=== PATIENT | female | born 2000 | race African-American/Black ===

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

== ENCOUNTER 2019-03-11 16:00 | Emergency (ER) | payer OTHER | END 2019-03-11 17:25 | disposition home or self-care (01) | LOC: NAV ERS 16:00 | DX: B34.9 Viral infection, unspecified (principal) | CPT/HCPCS: 99283 ==

== ENCOUNTER 2019-06-28 17:15 | Emergency (ER) | payer MEDICARE, OTHER | END 2019-06-28 18:57 | disposition home or self-care (01) | LOC: NAV ERS 17:15 | DX: Z03.818 Encounter for observation for suspected exposure to other biological agents ruled out (principal); J06.9 Acute upper respiratory infection, unspecified | CPT/HCPCS: 87081; 87430; 87804; 99283 ==

== ENCOUNTER 2020-03-30 21:20 | Emergency (ER) | payer OTHER, SELFPAY ==
[2020-04-01 02:52] LABS: SARS-CoV-2 MS2 Positive; SARS-CoV-2 N Gene Negative; SARS-CoV-2 S Gene Negative; SARS-CoV-2 by NAA Not Detected (NotDetected); SARS-CoV-2 orf1ab Negative
== END 2020-03-30 22:20 | disposition home or self-care (01) ==
LOC: NAV ERS 21:20
DX: R19.7 Diarrhea, unspecified (principal); R50.9 Fever, unspecified; Z20.828 Contact with and (suspected) exposure to other viral communicable diseases
CPT/HCPCS: 87635; U0003

== ENCOUNTER 2020-05-09 14:53 | Emergency (ER) | payer SELFPAY | END 2020-05-09 16:30 | disposition home or self-care (01) | LOC: NAV ERS 14:53 | DX: J02.9 Acute pharyngitis, unspecified (principal); R00.0 Tachycardia, unspecified; R59.0 Localized enlarged lymph nodes | CPT/HCPCS: 87081; 87430; 99283 ==

== ENCOUNTER 2020-07-04 21:40 | Emergency (ER) | payer BC ==
[2020-07-04] MEDS ORDERED: Sulfameth/Trimethoprim DS 800-160mg TAB ONE (22:34)
[2020-07-04] MEDS ORDERED: TETANUS, DIPHTHERIA TOX,ADULT (TDVAX) 0.5 ML VIAL IM ONE (22:36)
[2020-07-04] MEDS ORDERED: Boostrix 0.5 ML (Tdap) VIAL ONE (22:41)
== END 2020-07-04 22:56 | disposition home or self-care (01) ==
LOC: NAV ERS 21:40
DX: L03.011 Cellulitis of right finger (principal)
CPT/HCPCS: 10060; 87070; 87205; 90471; 90714; 90715

== ENCOUNTER 2023-03-08 19:39 | Emergency (ER) | payer MEDICAID, OTHER | END 2023-03-08 21:02 | disposition home or self-care (01) | LOC: NAV ERS 19:39 | DX: B34.9 Viral infection, unspecified (principal) | CPT/HCPCS: 87635; 87804; 99283 ==

== ENCOUNTER 2024-08-10 20:45 | Emergency (ER) | payer OTHER, SELFPAY ==
[2024-08-10] MEDS ORDERED: Ketorolac Tromethamine 30 MG (1 mL) VIAL ONE (21:41)
[2024-08-10] MEDS ORDERED: Ondansetron PF 4 MG/2 ML Vial ONE (21:41)
[2024-08-10 21:48] LABS: Bilirubin Negative (Negative); Blood, Urine Large (Negative); Glucose, Urine (Dipstick) Negative (Negative); Ketone, Urine Negative (Negative); Leukocyte Small (Negative); Nitrite Negative (Negative); Protein, Urine (Dipstick) Trace mg/dL (Neg-Trace)
[2024-08-10 21:49] LABS: #Basophils 0.1 thou/uL (0.0-0.2); #Lymphocytes 1.6 thou/uL (1.20-3.40); #Neutrophils 9.2 thou/uL (1.40-6.50); %Basophils 0.5 % (0.0-1.0); %Eosinophils 0.1 % (0.0-10.0); %Lymphocytes 13.3 % (21.0-51.0); %Monocytes 8.2 % (0.0-10.0); %Neutrophils 77.9 % (42.0-75.0); Hematocrit 38.9 % (36.0-47.0); Hemoglobin 12.6 g/dL (12.0-16.0); Mean Corpuscular HGB CONC 32.4 g/dL (32.0-36.0); Mean Corpuscular Hemoglobin 25.1 pg (27.0-31.0); Mean Corpuscular Volume 77.3 fl (78.0-98.0); Mean Platelet Volume 9.5 fL (7.4-10.4); Platelet Count 185 10x3/uL (130-400); RBC Distribution Width 11.4 % (11.5-14.5); Red Blood Cell (RBC) Count 5.03 mill/uL (4.20-5.40); White Blood Cell (WBC) Count 11.8 10x3/uL (4.8-10.8)
[2024-08-10 21:51] LABS: Pregnancy Test - Urine (BHCG) Negative (Negative); Pregu Control Background? CLEAR/WHITE (CLR/WHITE); Pregu Control Bar Appear? YES (CONTROL BAR)
[2024-08-10 21:56] LABS: CAUTI Indications for Culture Dysuria,urgency,freq; Clarity Slightly Cloudy (Clear); RBC/HPF Greater than 50 HPF (0-3)
[2024-08-10 21:58] LABS: Squamous Epithelial 0-3 HPF (0-3)
[2024-08-10 22:02] LABS: Bacteria/HPF 1+ HPF (None Seen); Mucous/LPF 1+ LPF (<2+); Urine Culture Reflex Yes Yes
[2024-08-10 22:06] LABS: ALT (SGPT) 28 U/L (Less than 34); AST (SGOT) 25 U/L (11-34); Alkaline Phosphatase 70 U/L (40-110); Anion Gap 14 mmol/L (10-20); BUN (Urea Nitrogen) 8 mg/dL (7.0-18.7); Calc. Creatinine Clearance 0 mL/min (70-130); Calcium 9.5 mg/dL (7.8-10.44); Carbon Dioxide 22 mmol/L (22-29); Chloride 104 mmol/L (98-107); Estimated GFR 126; Globulin 3.6 g/dL (2.4-3.5); Glucose 107 mg/dL (70-105); Lipase 14 U/L (8-78); Potassium 3.8 mmol/L (3.5-5.1); Protein, Total 7.6 g/dL (6.0-8.3); Sodium 136 mmol/L (136-145)
[2024-08-10] MEDS ORDERED: Sodium Chloride 0.9% 1,000 ML ONE (22:08)
[2024-08-10] MEDS ORDERED: Pantoprazole 40 MG VIAL ONE (23:30)
[2024-08-10] MEDS ORDERED: Mag-Al Plus 1200/1200/120 MG (30 mL) UDCUP ONE (23:30)
== END 2024-08-10 23:43 | disposition home or self-care (01) ==
LOC: NAV ERS 20:45
DX: K29.70 Gastritis, unspecified, without bleeding (principal); K29.80 Duodenitis without bleeding; D27.1 Benign neoplasm of left ovary; D27.0 Benign neoplasm of right ovary
CPT/HCPCS: 71046; 74177; 80053; 81001; 81025; 83690; 85025; 87086; 96361; 96374; 96375; J1885; J2405; J2470; J7030